=== PATIENT | female | born 1990 | race African-American/Black ===

== ENCOUNTER 2019-02-06 10:43 | Day surgery (SDC) | payer MEDICARE ==
--- NOTE | 2019-02-02 10:55 | HP ---
HISTORY OF PRESENT ILLNESS: Honey Prabhakar is a 29-year-old black female, who lives in [place] with her family. She is single. She dialyzes Tuesday, Tuesday, and Tuesday at 0530 hours. She is followed by Dr. Snow, [facility]. The patient has history of insulin-dependent diabetes and hypertension. She takes insulin in the evenings, not in the mornings. The patient presents for a fistula. She has had vein evaluation, contrast injection in [place], stating the veins are good in both arms, although there are no measurements and the evaluation is really incomplete. The patient is right handed. ALLERGIES: NONE. SOCIAL HISTORY: Tobacco, none. Alcohol, none. MEDICATIONS: 1. Amlodipine 10 mg a day. 2. Carvedilol 6.25 mg a day. 3. Hydralazine 100 mg three times a day. PAST SURGICAL HISTORY: Hemodialysis catheter placed at [facility] in September 2018. She was visiting [place], had this replaced in [place], January 02, 2019. REVIEW OF SYSTEMS: Ten-point noncontributory. PAST MEDICAL HISTORY: Insulin-dependent diabetes mellitus; hypertension; end-stage renal disease, on maintenance dialysis. PAST SURGICAL HISTORY: Hemodialysis catheter. PHYSICAL EXAMINATION: VITAL SIGNS: Weight 295 pounds, blood pressure 150/83, pulse 91, temperature 98.1 degrees. HEAD, EARS, EYES, NOSE AND THROAT: Unremarkable. LUNGS: Clear to auscultation. CARDIAC: Regular rate and rhythm without murmur or gallop. ABDOMEN: Soft and nontender. No masses. Obese. No obvious hernias. Palpable radial pulses bilaterally. Right IJ cuffed tunneled dialysis catheter exiting right chest. EXTREMITIES: Unremarkable. ASSESSMENT AND PLAN: End-stage renal disease, on maintenance dialysis. PLAN: Placement of left arm fistula. She understands risks and benefits, consents. Job ID: [id number]
[2019-02-05 15:17] VITALS: BMI 38.7
[2019-02-06 12:32] LABS: #Eosinphils 0.1 thou/uL (0.0-0.7); #Lymphocytes 3.2 thou/uL (1.20-3.40); #Monocytes 0.4 thou/uL (0.11-0.59); #Neutrophils 4.5 thou/uL (1.40-6.50); %Basophils 0.6 % (0.0-1.0); %Eosinophils 1.4 % (0.0-10.0); %Lymphocytes 38.5 % (21.0-51.0); %Monocytes 4.9 % (0.0-10.0); %Neutrophils 54.7 % (42.0-75.0); Hemoglobin 11.7 g/dL (12.0-16.0); Mean Corpuscular HGB CONC 33.1 g/dL (32.0-36.0); Mean Corpuscular Hemoglobin 29.7 pg (27.0-31.0); Mean Corpuscular Volume 89.7 fL (78.0-98.0); Mean Platelet Volume 7.4 fL (7.4-10.4); Platelet Count 291 thou/uL (130-400); RBC Distribution Width 15.2 % (11.5-14.5); Red Blood Cell (RBC) Count 3.94 mill/uL (4.20-5.40); White Blood Cell (WBC) Count 8.2 thou/uL (4.8-10.8)
[2019-02-06 12:39] LABS: BHCG - Serum Negative (NEGATIVE); Pregs Control Background? CLEAR/WHITE (CLR/WHITE); Pregs Control Bar Appear? YES (CONTROL BAR)
[2019-02-06 13:05] LABS: Anion Gap 18 mmol/L (10-20); BUN (Urea Nitrogen) 76 mg/dL (7.0-18.7); Calc. Creatinine Clearance 17 mL/min (70-130); Calcium 8.8 mg/dL (7.8-10.44); Carbon Dioxide 19 mmol/L (22-29); Chloride 103 mmol/L (98-107); Estimated GFR-MDRD 5; Glucose 136 mg/dL (70-105); Potassium 4.6 mmol/L (3.5-5.1); Sodium 135 mmol/L (136-145)
[2019-02-06] MEDS ORDERED: Bupivacaine HCl 0.5%/Epinephrine 1:200,000/PF 30 ml Vial ONE (13:45)
[2019-02-06] MEDS ORDERED: Lidocaine 2% PF 5 ML VIAL ONE (13:45)
[2019-02-06] MEDS ORDERED: Protamine Sulfate 50 MG/5 ML VIAL ONE (13:45)
[2019-02-06] MEDS ORDERED: Heparin 5,000 UNITS/ML VIAL ONE (13:45)
[2019-02-06] MEDS ORDERED: Ioversol 68 % 50 ML VIAL ONE (13:45)
[2019-02-06] MEDS ORDERED: Fentanyl 100 MCG/2 ML VIAL ONE ×4 (13:55→15:53)
[2019-02-06] MEDS ORDERED: PROPOFOL 200 MG/20 ML VIAL ONE (14:24)
[2019-02-06] MEDS ORDERED: Ondansetron PF 4 MG/2 ML Vial ONE (14:24)
[2019-02-06] MEDS ORDERED: Rocuronium Bromide 10 MG/ML (10ML VIAL) ONE (14:24)
[2019-02-06] MEDS ORDERED: Heparin 10,000 UNITS/ 10 ML VIAL ONE ×2 (14:24→17:58)
[2019-02-06] MEDS ORDERED: Lidocaine 1% PF 5 ML VIAL ONE (14:24)
[2019-02-06] MEDS ORDERED: Glycopyrrolate 0.2 MG/ML 5 ML SYRINGE ONE (14:24)
[2019-02-06] MEDS ORDERED: Sodium Chloride 0.9% 20 ML ONE (14:33)
[2019-02-06] MEDS ORDERED: Promethazine HCl 25 MG/ML VIAL ONE (15:48)
--- NOTE | 2019-02-06 16:29 | RAD ---
Exam: Chest one view HISTORY:HemoSplit dialysis catheter placement Comparison: None FINDINGS: Cardiac silhouette:Enlarged Pulmonary vessels: Prominent Costophrenic angles: Bilateral pleural effusions LUNGS: Probable atelectasis or edema involving both lower lobes. Pneumothorax: None Right-sided HemoSplit dialysis catheter. Distal tip is difficult to assess in terms of location due t o patient position and leftward rotation. Recommend repeat radiograph with better patient positioning. Osseous abnormalities: None IMPRESSION: 1. Limited evaluation in terms of the exact location of the tip of the HemoSplit dialysis catheter du e to patient position. Consider repeat imaging. 2. Volume overload.
--- NOTE | 2019-02-06 22:11 | OP ---
DATE OF PROCEDURE: 02/06/2019 PREOPERATIVE DIAGNOSES: End-stage renal disease, dysfunctional right internal jugular cuffed tunneled dialysis catheter placed at [facility]. POSTOPERATIVE DIAGNOSES: End-stage renal disease, dysfunctional right internal jugular cuffed tunneled dialysis catheter placed at [facility]. PROCEDURE PERFORMED: Removal of old right IJ cuffed tunneled hemodialysis catheter. Placement of new right IJ cuffed tunneled hemodialysis catheter. New exit site. Left Rajinder fistula 4 mm coronary dilator. ANESTHESIA: General, local 0.5% Marcaine with epinephrine 30 mL. DESCRIPTION OF PROCEDURE: The patient was taken to the operating room where under general anesthesia, neck and chest and left upper extremity were prepared with ChloraPrep and draped in routine fashion. Local anesthetic was infiltrated in the skin and subcutaneous tissue about the operative site. Incision was made in the right side of the neck overlying the curve with a hemodialysis cuffed catheter. The catheter dissected free from beneath the platysma, controlled with hemostats and divided and the old catheter removed and area old exit site prepared with ChloraPrep once the catheter was removed. A new stab incision was made over the right chest for new exit site. Using the tunneling device, the new pre-curved [employer] cuffed-tunneled hemodialysis catheter tunneled to the neck incision and the catheter secured with 2 interrupted sutures of 3-0 nylon. Dermabond, Mastisol, and sterile dressing applied. Through the old catheter in the IJ, a J-wire was inserted, old catheter removed and over the J-wire, dilator and tunneler placed into the internal jugular vein and superior vena cava and dilator and J-wire were removed, catheter placed through the Peel-Away sheath. Peel-Away sheath removed. Fluoroscopically, catheter noted to be in good position. Platysma was approximated with 4-0 Monocryl, skin with subdermal 4-0 Monocryl, and [place] glue applied. Each port aspirated blood, flushed with heparinized saline solution 1000 units heparin per mL indicating volume of the port and saline. The patient tolerated the procedure well. Attention was then turned to the left arm. There appeared to be a good vein at the wrist. Incision was made longitudinally between the radial artery and cephalic vein at the wrist. Cephalic vein was in adequate size and dissected free. Branches were tied between 4-0 silk ties and clips. The stump of the cephalic vein ligated with 3-0 silk tie, divided and interrogated with coronary dilators after spatulating with the Zheng scissors. Coronary dilators passed from a 2 mm to 4 mm coronary dilator without restriction. The patient was given 6000 units of heparin intravenously and radial artery dissected free and was found highly calcified. It was controlled proximally and distally with vascular clamps. Longitudinal arteriotomy was made for 2.5 cm anastomosis and likewise the cephalic vein spatulated and end vein to side radial anastomosis created with continuous suture of 6-0 Prolene. Vascular clamps were released. Good hemostasis was obtained with 6-0 Prolene. Good Doppler signal noted in the cephalic vein outflow. Branches were clipped to facilitate maturation. Subcutaneous tissue was approximated with 3-0 Monocryl, skin with subdermal 4-0 Monocryl and the patient was given 25 mg of protamine intravenously by Anesthesia. Job ID: [id number]
--- NOTE | 2019-02-06 23:21 | EKG ---
Test Reason : PREOP Blood Pressure : / mmHG Vent. Rate : 086 BPM Atrial Rate : 086 BPM P-R Int : 136 ms QRS Dur : 094 ms QT Int : 396 ms P-R-T Axes : 065 073 021 degrees QTc Int : 473 ms Normal sinus rhythm Normal ECG No previous ECGs available Confirmed by LEA PIÑA ([id number]) on 02/06/2019 11:20:46 PM Referred By: MONA Confirmed By:LAE PIÑA
== END 2019-02-06 18:15 | disposition home or self-care (01) ==
LOC: SDC 10:43
PROVIDERS: ATTEND Specialist
PROC: 0JPV3XZ Removal of Tunneled Vascular Access Device from Upper Extremity Subcutaneous Tissue and Fascia, Percutaneous Approach (ICD-10-PCS; principal; 2019-02-06)
PROC: 0JHD3XZ Insertion of Tunneled Vascular Access Device into Right Upper Arm Subcutaneous Tissue and Fascia, Percutaneous Approach (ICD-10-PCS; 2019-02-06)
DX: T82.49XA Other complication of vascular dialysis catheter, initial encounter (principal); I12.0 Hypertensive chronic kidney disease with stage 5 chronic kidney disease or end stage renal disease; E11.22 Type 2 diabetes mellitus with diabetic chronic kidney disease; N18.6 End stage renal disease; F17.290 Nicotine dependence, other tobacco product, uncomplicated; E66.9 Obesity, unspecified; Z68.38 Body mass index [BMI] 38.0-38.9, adult; Z99.2 Dependence on renal dialysis; Z79.4 Long term (current) use of insulin; Z79.899 Other long term (current) drug therapy
CPT/HCPCS: 36558; 36589; 71045; 80048; 82962; 84703; 85025; 93005; C1752; C1769; 36416; 93010; J0670; J0690; J1644; J2001; J2405; J2550; J2704; J2720; J3010; Q9967

== ENCOUNTER 2019-03-08 06:48 | Day surgery (SDC) | payer MEDICARE ==
[2019-03-07 14:12] VITALS: BMI 38.9
[2019-03-08 08:01] VITALS: BP 127/81; TEMP 98.8
[2019-03-08] MEDS ORDERED: Heparin 1,000 UNITS/ML VIAL ONE (10:00)
--- NOTE | 2019-03-08 12:18 | SPC ---
PROCEDURE: [facility] [place]/AV S PROVIDED CLINICAL HISTORY: Nonmaturing left upper extremity arteriovenous dialysis fistula patient with end-stage renal disease. COMPARISON: None Fluoroscopy: Total fluoroscopy time is 0.9 minutes with total dose of 33,706 mGy square centimeter. TECHNIQUE: After informed consent was obtained, the patient was placed on the angiography table in the supine po sition. The left upper extremity was evaluated with ultrasound. The left forearm was then meticulously prepped and draped in usual sterile fashion. Skin and subcutaneous tissues were infiltra chirag with buffered 1% lidocaine for local anesthesia at the intended puncture site. The left upper extremity radiocephalic arterial venous dialysis fistula was accessed with a 21-gauge micropuncture needle directed in the venous direction. The needle was exchanged over a 0.018 inch guidewire for a 4 German introducer sheath. A fistulogram and venogram to the SVC were performed. Mul tiple attempts at refluxing contrast into the arteriovenous anastomosis were unsuccessful. Blood pressure cuff was applied to the upper arm and manual compression was also applied, but again, reflux of the arteriovenous anastomosis was unsuccessful. Findings were discussed with Dr. Burden at this time. Introducer sheath was removed, and hemostasis was achieved with direct pressure. Patient was tr ansported to radiology nurses holding area for further monitoring prior to discharge. FINDINGS: Patient has a left upper extremity radiocephalic arteriovenous dialysis fistula, and the ve nous outflow is patent to the level of the SVC. There is mild narrowing of the cephalic vein at the level of the humerus. However, this narrowing is not flow limiting and could be related to positionin g of the arm. Upon injection of the introducer sheath with blood pressure cuff applied to the upper arm and manual compression just distal to the introducer sheath, there is reflux of multiple venous c ollaterals about the proximal forearm without reflux of contrast into the radial artery. Ultrasound examination of this region demonstrated patency of the arteriovenous anastomosis, and again, there is brisk flow and washout of the arteriovenous dialysis fistula. IMPRESSION: 1. Nonvisualization the arteriovenous anastomosis, but there is otherwise patent venous outflow of th e radiocephalic fistula to the level of the SVC. 2. Above findings were discussed with Dr. Burden at the termination of this procedure.
== END 2019-03-08 09:45 | disposition home or self-care (01) ==
LOC: SPEC 06:48
PROVIDERS: ATTEND Specialist
PROC: B51W1ZZ Fluoroscopy of Dialysis Shunt/Fistula using Low Osmolar Contrast (ICD-10-PCS; principal; 2019-03-08)
DX: T82.898A Other specified complication of vascular prosthetic devices, implants and grafts, initial encounter (principal); I12.0 Hypertensive chronic kidney disease with stage 5 chronic kidney disease or end stage renal disease; E11.22 Type 2 diabetes mellitus with diabetic chronic kidney disease; N18.6 End stage renal disease; Z79.4 Long term (current) use of insulin; Z79.899 Other long term (current) drug therapy; Z99.2 Dependence on renal dialysis
CPT/HCPCS: 36901; 84702; J1644

== ENCOUNTER 2019-03-20 12:07 | Day surgery (SDC) | payer MEDICARE ==
--- NOTE | 2019-03-19 15:39 | HP ---
HISTORY OF PRESENT ILLNESS: Viktoria Prabhakar is a 29-year-old female, end-stage renal disease, dialyzed using hemodialysis catheter. She previously dialyzes in [place], but now dialyzes at [facility], Tuesday, Tuesday, and Tuesday . The patient had a Rajinder fistula placed, 02/06/2019, and this was slow to mature and a fistulogram was obtained today. This revealed multiple collaterals in the cephalic vein, forearm with good outflow, cephalic basilic vein upper arm with superior outflow, cephalic vein upper arm. The patient is morbidly obese, 39 BMI, 301 pounds, 6 feet 1 inch. Plan is for intraoperative fistulogram and ligation of the collaterals as an outpatient. She understands risks and benefits. This will facilitate fistula maturation. MEDICATIONS: 1. Amlodipine. 2. Carvedilol. 3. Ferrous sulfate. 4. Hydralazine. 5. Insulin glargine. 6. Furosemide. 7. Tramadol p.r.n. PAST MEDICAL HISTORY: End-stage renal disease, on maintenance dialysis, diabetes mellitus type 2, morbid obesity, hypertension, anemia. PAST SURGICAL HISTORY: Hemodialysis catheter placed, [place], September 2018. Left AV fistula, Rajinder type, 02/06/2019. ALLERGIES: NONE. SOCIAL HISTORY: Tobacco, none. Alcohol, none. PHYSICAL EXAMINATION: VITAL SIGNS: 301 pounds, 6 feet 1 inch, 39 BMI, 127/83, 81, 97.2 degrees. HEAD, EARS, EYES, NOSE, AND THROAT: Unremarkable. LUNGS: Clear to auscultation. CARDIAC: Regular rate and rhythm without murmur or gallop. ABDOMEN: Soft, obese, nontender. EXTREMITIES: Left Rajinder fistula, good thrill and bruit. Poorly palpated and appreciated proximal forearm. ASSESSMENT AND PLAN: Left Rajinder fistula. PLAN: Intraoperative fistulogram and ligation of collaterals to facilitate maturation. Plan this is an outpatient. Job ID: [id number]
[2019-03-19 17:08] VITALS: BMI 39.5
[2019-03-20 13:28] LABS: #Basophils 0.1 thou/uL (0.0-0.2); #Eosinphils 0.2 thou/uL (0.0-0.7); #Monocytes 0.6 thou/uL (0.11-0.59); #Neutrophils 3.5 thou/uL (1.40-6.50); %Basophils 1.1 % (0.0-1.0); %Eosinophils 2.6 % (0.0-10.0); %Lymphocytes 40.9 % (21.0-51.0); %Monocytes 7.9 % (0.0-10.0); %Neutrophils 47.6 % (42.0-75.0); Hemoglobin 10.2 g/dL (12.0-16.0); Mean Corpuscular Hemoglobin 30.7 pg (27.0-31.0); Mean Corpuscular Volume 90.4 fL (78.0-98.0); Mean Platelet Volume 7.3 fL (7.4-10.4); Platelet Count 262 thou/uL (130-400); Red Blood Cell (RBC) Count 3.33 mill/uL (4.20-5.40); White Blood Cell (WBC) Count 7.4 thou/uL (4.8-10.8)
[2019-03-20 13:46] LABS: BHCG - Serum Negative (NEGATIVE); Pregs Control Background? CLEAR/WHITE (CLR/WHITE); Pregs Control Bar Appear? YES (CONTROL BAR)
[2019-03-20 13:48] LABS: Anion Gap 15 mmol/L (10-20); BUN (Urea Nitrogen) 40 mg/dL (7.0-18.7); Calc. Creatinine Clearance 21 mL/min (70-130); Calcium 9.8 mg/dL (7.8-10.44); Carbon Dioxide 25 mmol/L (22-29); Chloride 99 mmol/L (98-107); Estimated GFR-MDRD 7; Glucose 123 mg/dL (70-105); Sodium 135 mmol/L (136-145)
[2019-03-20] MEDS ORDERED: Midazolam HCl 2 mg/2 ml Vial ONE (14:21)
[2019-03-20] MEDS ORDERED: Fentanyl 100 MCG/2 ML VIAL ONE (14:21)
[2019-03-20] MEDS ORDERED: Protamine Sulfate 50 MG/5 ML VIAL ONE (15:24)
[2019-03-20] MEDS ORDERED: Heparin 10,000 UNITS/1 ML VIAL ONE (15:24)
[2019-03-20] MEDS ORDERED: Heparin 5,000 UNITS/ML VIAL ONE (15:24)
[2019-03-20] MEDS ORDERED: Bupivacaine HCl 0.5%/Epinephrine 1:200,000/PF 30 ml Vial ONE (15:24)
[2019-03-20] MEDS ORDERED: Lidocaine 2% PF 5 ML VIAL ONE (15:25)
[2019-03-20] MEDS ORDERED: Sodium Chloride 0.9% 0 ML ONE (15:25)
[2019-03-20] MEDS ORDERED: Famotidine/PF 20 mg/2ml Vial ONE (15:27)
[2019-03-20] MEDS ORDERED: Propofol 1,000 MG/100 ML VIAL IV ONE (15:27)
[2019-03-20] MEDS ORDERED: PROPOFOL 40 ML ONE (15:27)
[2019-03-20] MEDS ORDERED: Iothalamate Meglumine 60% 50 ML VIAL FS ONE (15:34)
[2019-03-20] MEDS ORDERED: Ioversol 68 % 50 ML VIAL ONE (15:44)
[2019-03-20] MEDS ORDERED: Heparin 10,000 UNITS/ 10 ML VIAL ONE (18:39)
--- NOTE | 2019-03-21 00:22 | OP ---
DATE OF PROCEDURE: 03/20/2019 PREOPERATIVE DIAGNOSES: 1. End-stage renal disease. 2. Morbid obesity. 3. Left arm arteriovenous fistula malformation. PROCEDURE: Fistulogram, left arm with revision of left arm fistula without thrombectomy. ANESTHESIA: Regional, TIVA. ESTIMATED BLOOD LOSS: 100 mL. FINDINGS: The patient had a narrow segment of her fistula with a very large collateral and the collateral was used for a venoplasty revision. Noted at the end of this procedure, the patient had excellent bruit improved relative to pre-repair. DESCRIPTION OF PROCEDURE: The patient was taken to the operating room where under regional anesthesia and intravenous sedation, left upper extremity was prepared with ChloraPrep and draped in routine fashion. Initially using the Doppler, the fistula was cannulated with Angiocath. Intraoperative fistulogram was obtained using fluoroscopy. This revealed a very large collateral anatomy. It was difficult to discern that there is a large collateral in the runoff. An incision was thus made over the fistula and the venous catheter removed. The venous puncture closed with 6-0 Prolene and fistula dissected free and a very large branch dissected free and outflow with a branch clipped with large clips, divided, and then the patient was given 6000 units of heparin intravenously. After adequate circulation time, vascular clamp was applied to the inflow of the fistula from the radial artery and outflow, and Zheng scissors were used to spatulate this large branch enabling of venoplasty over the narrowed segment. Continuous suture of 6-0 Prolene was used for this venoplasty. Once this was completed, vascular clamps released and there was a much better signal in the fistula, much better outflow, and fistulogram was not repeated. The patient tolerated the procedure well as good hemostasis noted and obtained with 6-0 Prolene. Subcutaneous tissue was approximated with 3-0 Monocryl, skin with subdermal 4-0 Monocryl, and [place] glue applied. The patient is given 25 mg of protamine intravenously by Anesthesia. Job ID: [id number]
== END 2019-03-20 19:00 | disposition home or self-care (01) ==
LOC: SDC 12:07
PROVIDERS: ATTEND Specialist
PROC: 03WY07Z Revision of Autologous Tissue Substitute in Upper Artery, Open Approach (ICD-10-PCS; principal; 2019-03-20)
DX: T82.898A Other specified complication of vascular prosthetic devices, implants and grafts, initial encounter (principal); I12.0 Hypertensive chronic kidney disease with stage 5 chronic kidney disease or end stage renal disease; E11.22 Type 2 diabetes mellitus with diabetic chronic kidney disease; N18.6 End stage renal disease; D63.1 Anemia in chronic kidney disease; E66.01 Morbid (severe) obesity due to excess calories; Z68.39 Body mass index [BMI] 39.0-39.9, adult; Z79.4 Long term (current) use of insulin; Z79.899 Other long term (current) drug therapy; Z99.2 Dependence on renal dialysis
CPT/HCPCS: 76000; 80048; 84703; 85025; J0670; J0690; J1644; J2001; J2250; J2704; J2720; J3010; Q9961; Q9967; S0028